=== PATIENT | female | born 1960 | race Caucasian/White ===

== ENCOUNTER → 2023-12-14 08:47 | Outpatient (REF) | payer OTHER, SELFPAY | LOC: PAVMRI 08:47 | PROVIDERS: ATTENDING PHYSICIAN Orthopaedic Surgery | DX: M54.16 Radiculopathy, lumbar region (principal) | CPT/HCPCS: 72148 ==

== ENCOUNTER → 2024-01-08 14:15 | Outpatient (REF) | payer OTHER, SELFPAY | LOC: RAD 14:15 | PROVIDERS: ATTENDING PHYSICIAN Orthopaedic Surgery; FAMILY PHYSICIAN Family Medicine | DX: M79.89 Other specified soft tissue disorders (principal) | CPT/HCPCS: 93971 ==

== ENCOUNTER → 2024-02-27 11:07 | Outpatient (REF) | payer OTHER, SELFPAY | LOC: RAD 11:07 | PROVIDERS: ATTENDING PHYSICIAN Orthopaedic Surgery; FAMILY PHYSICIAN Family Medicine | DX: S84.12XA Injury of peroneal nerve at lower leg level, left leg, initial encounter (principal) | CPT/HCPCS: 76882 ==

== ENCOUNTER → 2024-03-14 14:05 | Outpatient (REF) | payer OTHER, SELFPAY | LOC: RCS 14:05 | PROVIDERS: ATTENDING PHYSICIAN Pain Medicine Interventional Pain Medicine; FAMILY PHYSICIAN Family Medicine | DX: Z01.818 Encounter for other preprocedural examination (principal) | CPT/HCPCS: 93005 ==

== ENCOUNTER → 2024-04-04 08:49 | Outpatient (REF) | payer OTHER, SELFPAY | LOC: HWRAD 08:49 | PROVIDERS: ATTENDING PHYSICIAN Family Medicine | DX: I73.9 Peripheral vascular disease, unspecified (principal) | CPT/HCPCS: 75635; Q9967 ==

== ENCOUNTER → 2024-06-24 12:41 | Outpatient (REF) | payer OTHER, SELFPAY ==
[2024-06-24 13:35] LABS: % Basophils 0.2 % (0-2); % Eosinophils 0.9 % (0-6); % Immature Granulocytes 0.3 % (0-0.5); % Lymphocytes 19.8 % (20.5-51.1); % Monocytes 8.1 % (1.7-9.3); % Neutrophils 70.7 % (42.2-75.2); Absolute Eosinophils 0.1 10^3/uL (0-0.7); Absolute Lymphocytes 1.2 10^3/uL (1.2-3.4); Absolute Monocytes 0.5 10^3/uL (0.1-0.6); Absolute Neutrophils 4.1 10^3/uL (1.4-6.5); Hematocrit 33.9 % (37.0-47.0); Hemoglobin 11.3 g/dL (12.0-16.0); Mean Corp Hgb Conc. 33.3 g/dL (33.0-37.0); Mean Corpuscular Hgb 30.2 pg (27.0-31.0); Mean Corpuscular Volume 90.6 fL (81.0-99.0); Mean Platelet Volume 9.2 fL (7.4-10.4); Nucleated Red Blood Cells % 0 %; Platelet Count 242 10^3/uL (130-400); Red Blood Cell Count 3.74 10^6/uL (4.20-5.40); Red Cell Dist. Width 13.8 % (11.5-14.5); White Blood Cell Count 5.8 10^3/uL (4.8-10.8)
[2024-06-24 14:47] LABS: Blood Urea Nitrogen 17 mg/dl (7-17); Carbon Dioxide 32 mmol/L (22-30); Chloride 97 mmol/L (98-107); Glucose 110 mg/dl (70-99); Potassium 5.2 mmol/L (3.5-5.1); Sodium 142 mmol/L (135-145); eGFR > 60.00
== END ==
LOC: REG 12:41
PROVIDERS: ATTENDING PHYSICIAN Orthopaedic Surgery Hand Surgery; FAMILY PHYSICIAN Family Medicine
DX: Z01.818 Encounter for other preprocedural examination (principal)
CPT/HCPCS: 36415; 80048; 85025

== ENCOUNTER → 2024-06-25 11:55 | Outpatient (REF) | payer OTHER, SELFPAY | LOC: RCS 11:55 | PROVIDERS: ATTENDING PHYSICIAN Orthopaedic Surgery Hand Surgery; FAMILY PHYSICIAN Family Medicine | DX: Z01.818 Encounter for other preprocedural examination (principal) | CPT/HCPCS: 93005 ==

== ENCOUNTER → 2024-11-10 08:36 | Outpatient (REF) | payer OTHER, SELFPAY | LOC: RAD 08:36 | PROVIDERS: ATTENDING PHYSICIAN Surgery Vascular Surgery; FAMILY PHYSICIAN Family Medicine | DX: Z87.891 Personal history of nicotine dependence (principal); I70.229 Atherosclerosis of native arteries of extremities with rest pain, unspecified extremity; I73.9 Peripheral vascular disease, unspecified; Z98.890 Other specified postprocedural states | CPT/HCPCS: 93922 ==

== ENCOUNTER 2024-11-19 06:10 | Day surgery (SDC) | payer OTHER, SELFPAY ==
[2024-11-07 11:18] LABS: Hematocrit 38.4 % (37.0-47.0); Hemoglobin 12.4 g/dL (12.0-16.0); Mean Corp Hgb Conc. 32.3 g/dL (33.0-37.0); Mean Corpuscular Hgb 29.1 pg (27.0-31.0); Mean Corpuscular Volume 90.1 fL (81.0-99.0); Mean Platelet Volume 9.2 fL (7.4-10.4); Platelet Count 209 10^3/uL (130-400); Red Blood Cell Count 4.26 10^6/uL (4.20-5.40); Red Cell Dist. Width 13.5 % (11.5-14.5); White Blood Cell Count 5.6 10^3/uL (4.8-10.8)
[2024-11-07 11:41] LABS: ALT (SGPT) 18 U/L (0-35); AST (SGOT) 23 U/L (14-36); Albumin 4.9 g/dl (3.5-5.0); Alkaline Phosphatase 69 U/L (38-126); Blood Urea Nitrogen 19 mg/dl (7-17); Calcium 10.1 mg/dl (8.4-10.2); Carbon Dioxide 32 mmol/L (22-30); Chloride 98 mmol/L (98-107); Glucose 116 mg/dl (70-99); Potassium 4.7 mmol/L (3.5-5.1); Sodium 140 mmol/L (135-145); Total Bilirubin 0.4 mg/dl (0.2-1.3); Total Protein 7.9 g/dl (6.3-8.2); eGFR > 60.00
[2024-11-07 11:57] LABS: Glycohemoglobin (HgbA1c) 6.2 % (4.0-5.6)
[2024-11-07 13:22] VITALS: BMI 31.0
[2024-11-13 14:42] VITALS: BMI 31.0
[2024-11-19] VITALS (19 sets, daily range): BP systolic 70–141; BP diastolic 48–66; O2SAT 98; BMI 31.0
[2024-11-19] MEDS: TYLENOL 650 MG PO ×4 (07:09→23:02)
--- NOTE | 2024-11-19 07:09 | W.DS.TRANS ---
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
-
Discharge Instructions:
Sleep Apnea Risk High
Discharge Diagnosis/Procedures L JOSE 11/19/24
Diet As tolerated
Activity With Walker
Driving Restrictions No driving
Bathing Restrictions OK to Shower
Other Services PT
Instructions:
Stand-Alone Forms: Total Hip/Knee Replacement D/C
Changes to Home Medications: Yes
Discharge Medications:
DC Medications w/original date entered in [facility]
buprenorphine 8 mg-naloxone 2 mg sublingual tablet 1 tab sublingual BID 06/06/23
cholecalciferol (vitamin D3) 50 mcg (2,000 unit) tablet (Vitamin D3) 50 mcg PO DAILY 06/06/23
fluoxetine 20 mg capsule (Prozac) 20 mg PO DAILY 06/06/23
lisinopril 10 mg tablet 10 mg PO DAILY 06/06/23
aspirin 81 mg capsule 81 mg PO DAILY 11/04/24
clopidogrel 75 mg tablet 75 mg PO DAILY 11/04/24
rosuvastatin 20 mg tablet 20 mg PO DAILY 11/04/24
dexamethasone 4 mg tablet 4 mg PO BID inflammation #6 tabs 11/07/24
gabapentin 300 mg capsule 300 mg PO HS sleep/pain #10 caps 11/07/24
mupirocin 2 % topical ointment 1 applic topical BID infection prevention #1 tube 11/07/24
acetaminophen 325 mg tablet (Tylenol) 650 mg (2 x 325 mg) PO QID #1 tab 11/19/24
aspirin 325 mg tablet 325 mg PO DAILY blood clot prevention #1 tab 11/19/24
cyclobenzaprine 10 mg tablet 10 mg PO HS 11/19/24
docusate sodium 100 mg capsule (Colace) 100 mg PO BID stool softner #1 cap 11/19/24
magnesium hydroxide 400 mg/5 mL oral suspension (Milk of Magnesia) 30 ml PO HS PRN Constipation #1 mL 11/19/24
sennosides 8.6 mg tablet (Senokot) 17.2 mg (2 x 8.6 mg) PO BID laxative #2 tabs 11/19/24
Home Medication Changes
aspirin 81 mg capsule 81 mg PO DAILY 11/04/24
clopidogrel 75 mg tablet 75 mg PO DAILY 11/04/24
rosuvastatin 20 mg tablet 20 mg PO DAILY 11/04/24
dexamethasone 4 mg tablet 4 mg PO BID inflammation #6 tabs 11/07/24
gabapentin 300 mg capsule 300 mg PO HS sleep/pain #10 caps 11/07/24
mupirocin 2 % topical ointment 1 applic topical BID infection prevention #1 tube 11/07/24
acetaminophen 325 mg tablet (Tylenol) 650 mg (2 x 325 mg) PO QID #1 tab 11/19/24
aspirin 325 mg tablet 325 mg PO DAILY blood clot prevention #1 tab 11/19/24
cyclobenzaprine 10 mg tablet 10 mg PO HS 11/19/24
docusate sodium 100 mg capsule (Colace) 100 mg PO BID stool softner #1 cap 11/19/24
magnesium hydroxide 400 mg/5 mL oral suspension (Milk of Magnesia) 30 ml PO HS PRN Constipation #1 mL 11/19/24
sennosides 8.6 mg tablet (Senokot) 17.2 mg (2 x 8.6 mg) PO BID laxative #2 tabs 11/19/24
Pending Results: No
[2024-11-19] MEDS: CELEBREX 200 MG PO (07:10)
[2024-11-19] MEDS: NORMOSOL-R/PLASMALYTE-A 1000 IV ×3 (07:10→15:37)
--- NOTE | 2024-11-19 11:48 | VNURNOTE ---
[facility] liaison rec'ed msg that patient is SDS/PSR. Confirmed w/Mandy Grier that pt will be 23hr OBS and that patient was advised as part of pre-op scheduling to schedule Outpt PT. Confirmed with Ortho [facility] Carter, plan for outpt PT.
--- NOTE | 2024-11-19 12:05 | PTCARENOTE ---
Patient admitted from PACU post left total hip replacement.She is drowsy but arouses easily.The patient reports her pain at a 4 out of 10.Neurovascular assessment is within normal limits and ongoing.The left hip dressing is intact with a scant
amount of drainage.She is able to wiggle her toes and has feeling up to b/l shins.The patient is in her bed with the call bhat in reach.
[2024-11-19] MEDS: ROXICODONE 10 MG PO (12:41)
--- NOTE | 2024-11-19 13:59 | CM ---
Addendum entered by Breanna Torres RN 11/19/24 16:04:
Patient has an appointment set for ambulatory center for Sunday at 1pm. Patient will d/c tomorrow after PT/OT.
Original Note:
Reviewed the chart notes and spoke with the patient and spouse at the bedside. Received TT regarding patient possibly no scheduling outpatient PT. Discuss with patient and spouse. Both reported they were not instructed to do so, nor did they
receive a script for outpatient therapy. Spouse had concern regarding the patient's ability to do outpatient. Resistant to the ideal. Call placed to Priscila with [facility]. [facility] and [facility] booked to mid November. She took CM
information and will look into seeing if able to squeeze patient in on Sunday.
Patient resides with her spouse in a split level home with no steps to enter. The patient reports having a rolling walker, cane, shower chair. The patient has had VN in the past, but no SNF. The patient confirmed her pharmacy of choice is the
[facility]. CM continues to be available to patient/family and is monitoring medical plan for needs at discharge.
Plan: Discharge to home with outpatient therapy.
[2024-11-19] MEDS: CRESTOR 20 MG PO (15:25)
[2024-11-19] MEDS: FLEXERIL 10 MG PO ×3 (15:25→22:55)
[2024-11-19] MEDS: LYRICA 100 MG PO ×2 (15:25→15:36)
[2024-11-19] MEDS: PROZAC PO (15:26)
[2024-11-19] MEDS: ANCEF 5 IV ×2 (15:26→23:03)
[2024-11-19] MEDS: TYLENOL PO (15:36)
[2024-11-19] MEDS: DILAUDID 0.5 MG IV (16:03)
[2024-11-19] MEDS: NSS (PRESERVATIVE FREE) 0.5 ML IV ×2 (17:16→22:55)
[2024-11-19] MEDS: ATIVAN 1 MG IV ×2 (17:16→22:55)
[2024-11-19] MEDS: MS CONTIN (EXTENDED RELEASE) 15 MG PO ×2 (17:16→20:30)
[2024-11-19] MEDS: ASPIRIN 325 MG PO (17:16)
[2024-11-19] MEDS: LYRICA PO (19:30)
[2024-11-19] MEDS: TORADOL 15 MG IV (20:30)
[2024-11-19] MEDS: SENOKOT 17.2 MG PO (20:30)
[2024-11-19] MEDS: DECADRON 6 MG IV (20:30)
[2024-11-19] MEDS: COLACE 100 MG PO (20:30)
[2024-11-19] MEDS: BACTROBAN 2% OINTMENT 1 APPLIC NASAL (20:30)
[2024-11-19] MEDS: LYRICA 150 MG PO (22:55)
[2024-11-19] MEDS: PEPCID 40 MG PO (22:55)
[2024-11-20 03:00] VITALS: BP 124/80
[2024-11-20] MEDS: TYLENOL 650 MG PO ×6 (03:32→23:23)
[2024-11-20 07:32] VITALS: BP 120/58
[2024-11-20] MEDS: ASPIRIN 325 MG PO (08:29)
[2024-11-20] MEDS: PROZAC 20 MG PO (08:29)
[2024-11-20] MEDS: FLEXERIL 10 MG PO ×3 (08:29→21:43)
[2024-11-20] MEDS: LYRICA 150 MG PO (08:29)
[2024-11-20] MEDS: CRESTOR 20 MG PO (08:29)
[2024-11-20] MEDS: MS CONTIN (EXTENDED RELEASE) 15 MG PO (08:30)
[2024-11-20] MEDS: COLACE 100 MG PO ×2 (08:30→20:32)
[2024-11-20] MEDS: MOBIC 15 MG PO (08:30)
[2024-11-20] MEDS: SENOKOT 17.2 MG PO ×2 (08:30→20:32)
[2024-11-20] MEDS: NSS (PRESERVATIVE FREE) 0.5 ML IV (08:31)
[2024-11-20] MEDS: ATIVAN 1 MG IV (08:31)
[2024-11-20] MEDS: TORADOL 15 MG IV ×2 (08:31→20:34)
[2024-11-20] MEDS: DECADRON 6 MG IV ×3 (08:32→20:35)
[2024-11-20] MEDS: BACTROBAN 2% OINTMENT 1 APPLIC NASAL ×2 (08:32→20:32)
--- NOTE | 2024-11-20 10:32 | W.PN.ORTHO ---
Today's Communication / Plan
-
d/c
Assessment
.
Distal Motor Intact: Yes
Dressing:
Clean, dry and intact.
Assessment:
Chronic pain opioid tolerant-issues with pain following surgery now improved with med adjustments--she will f/u with pain provider OP as discussed pre-operatively
Plan
.
Surgery / Date: L JOSE 11/19/24
DVT Prophylaxis: Aspirin
Activity:
Out of bed.
PT/OT
Discharge Plan: Home w/ Outpatient PT
Subjective
.
.:
Patient resting comfortably.
Vital Signs and Labs
.
Vital Signs and Labs:
Lab Results
11/07/24 10:54
11/07/24 10:54
Temp Pulse Resp BP Pulse Ox
97.2 F 70 14 120/58 99
11/20/24 07:32 11/20/24 08:30 11/20/24 07:32 11/20/24 08:30 11/20/24 09:45
Non-invasive Hgb result: 11.4
Physical Exam
-
HEENT: No pallor, cyanosis, or jaundice. Throat clear.
NECK: Supple. No JVD.
RESPIRATORY: Lungs clear to auscultation.
CVS: S1, S2 normal. RRR.� No murmur, rub or gallop.
ABDOMEN: Soft, non-tender. No distension. BS+/normal.
EXTREMITIES: strength equal, no calf pain with palpation
LENDING ACTIVITIES SUPERVISOR: AOx3. No focal deficits. investment accounting clerk grossly intact
[2024-11-20 11:05] VITALS: BP 93/49
[2024-11-20] MEDS: TYLENOL PO (11:56)
--- NOTE | 2024-11-20 12:04 | CM ---
CM following re: discharge planning.
Reviewed pt's chart, met with t.
Pt is a 64 year old female, admitted with OBS status and primary dx of POD #1 L JOSE.
Pt reports she lives with 2SH, 1 step to enter, has supportive daughter. Pt rtepprts she ambulates with a walker and a cane at baseline, has shower chair.
PT and OT evaluations noted: yesterday outpatient PT/OT recommended and today PT/OT recommend home PT/OT. Both pt and her are aware, expressed their agreement. A list of VN vendors provided, pt preferred [facility]. A referral to VN made. Pt is
aware she will start outpatient PT/OT after the completion of home VN services, Home PT and OT.
PCP: Micheal Pereyra
Pharmacy: [facility]
Please fax discharge instructions to VN at [phone]
D/C plan: home with [facility] and family support.
[2024-11-20 12:05] VITALS: BP 144/73
[2024-11-20] MEDS: D5/0.45%NACL 500 IV (12:46)
[2024-11-20 15:17] VITALS: BP 151/58
--- NOTE | 2024-11-20 16:03 | VNURNOTE ---
Chart reviewed and updates rec'ed from BART Slaughter and PT. DC plan initially was outpt PT. PT eval'ed and recommended Home PT. [facility] liaison spoke with patient and spouse at bedside. Patient slightly groggy and making comments that did not make
sense with conversation. Spouse concerned patient not at her baseline. Primary RN aware, PA aware. Provided [facility] brochure and explained services. Patient and spouse are aware that plan is dependant upon re-eval by PT. Referral in [facility] in
case needed.
Plan: Awaiting final DC plan once PT re-evals patient.
Outpt PT v. [facility] home PT
[2024-11-20] MEDS: PEPCID 40 MG PO (21:43)
[2024-11-20 23:09] VITALS: BP 125/56
--- NOTE | 2024-11-21 02:52 | W.PN.UPDATE ---
Addendum entered and electronically signed by EBER Licea 11/21/24 04:19:
0400 official report pending but there appears to be periprosthetic fx left hip
DR isaac notified via TT. ORder placed for NPO, hold ASA, will need repeat OR today.
Original Note:
Update Note
Progress Note Update
0250 Eval for pt fall
Pt ambulated to bathroom unassisted and nurses heard 'thud' and pt found on floor. C/o left hip pain. Left leg doesn't appear shortened and rotated. Pt complains of pain to left hip and left thigh mostly but states not really any worse than post
surgery. LEft hip does appear swollen but RN states does not appear any worse than prior assessment.
Will check stat xray left hip and femur
[2024-11-21 02:57] VITALS: BP 145/65
[2024-11-21] MEDS: TYLENOL 650 MG PO ×5 (03:10→20:15)
--- NOTE | 2024-11-21 03:15 | PTCARENOTE ---
Addendum entered by Constance Nolan RN 11/21/24 07:41:
Pt complained of increase in pain with movement after her fall when assessed at the bedside. FURNITURE ARRANGER also noticed this during her bedside assessment which prompted her to order the STAT Left Hip & Femur xRays.
Original Note:
On 11/19 pt had a total left hip replacement with Dr. Arevalo. This morning pt fell at 02:20 in her room when she was attempting to get out of bed without calling for assistance. I was in room 2101 assisting another pt. Another nurse was in the room
next to my pt, heard the fall and went in to assist. The pt denied hitting her head and both myself and my fellow nurse did a neurological assessment and the pt demonstrated no deficients, her pupils were normal size & she was able to track the
movement of our fingers. There was no blood or lumps on her head. Pt was assisted back to bed & v/s were taken. Temp. 98.6, B/P 145/65, HR 96, POx 96% RA, Resp 20. FURNITURE ARRANGER notified and assessed pt at bedside. FURNITURE ARRANGER ordered a STAT Left Hip & Left Femur Xray.
FURNITURE ARRANGER's updated note at 02:52 states there appears to be periprosthetic fx left hip. FURNITURE ARRANGER notified who ordered the pt NPO, hold ASA for OR. Pt was made NPO and is in her roon. the bed is in a low position, call light in reach, Pt is AOx3, bed
alarm is on and she is watching TV and using her cell phone.
--- NOTE | 2024-11-21 06:56 | W.PN.UPDATE ---
Update Note
Progress Note Update
64-year-old female POD #2 Left Total Hip Replacement 11/19/[address] Arevalo. Unfortunately, she reports sustaining a fall off of the toliet yesterday evening. Radiographs of the left hip show periprosthetic fracture. This will require
revision surgery. Surgical and blood consents obtained and placed in patient's chart. Left hip marked as the correct surgical extremity. Hold Aspirin. NWB LLE. Ancef, iodine irrigation, and TXA irrigation on-call to OR. Type and screen
requested. H&H ordered. Spoke with OR hotel front office manager. Hopefully can proceed with surgery this afternoon pending OR and equipment availability. Orthopedic surgery will continue to follow.
[2024-11-21 07:05] VITALS: BP 124/58
--- NOTE | 2024-11-21 09:02 | W.PN.UPDATE ---
Update Note
Progress Note Update
Notified by therapy yesterday patient impulsive and not following direction. Opioids stopped and additional IVF w/ Decadron ordered. Requested PT re-assess later in day.
[2024-11-21] MEDS: MOBIC 15 MG PO (09:51)
[2024-11-21] MEDS: SENOKOT 17.2 MG PO ×2 (09:51→20:15)
[2024-11-21] MEDS: CRESTOR 20 MG PO (09:52)
[2024-11-21] MEDS: FLEXERIL 10 MG PO ×3 (09:52→21:24)
[2024-11-21] MEDS: PROZAC 20 MG PO (09:52)
[2024-11-21] MEDS: COLACE 100 MG PO ×2 (09:53→20:16)
--- NOTE | 2024-11-21 10:51 | CM ---
Reviewed the chart notes. Patient sustained a fall and left hip x-ray shows periprosthetic fracture that will require revision surgery, hopefully today. CM continues to be available to patient/family and is monitoring medical plan for needs at
discharge.
Plan: Discharge plans will depend on the patient's progress.
[2024-11-21 15:56] VITALS: BP 138/60
--- NOTE | 2024-11-21 16:20 | W.PN.ORTHO ---
Today's Communication / Plan
-
d/c in am-accepted for transfer
Assessment
.
Dressing:
Clean, dry and intact.
Assessment:
This patient was seen pre-op and questioned re Suboxone. Initially denied having pain specialist until I informed her that typically this is who would Rx this drug. Informed by nurse immediately following surgery that she was in 08/07 intractable
pain and crying out. Made med adjustments based on additional info confirmed by nurse. Patient had been taking up to a total of 40mg of Oxycodone daily. Pain was then better controlled following adjustment.
POD#1 Saw patient in am in bed. Appeared somewhat drowsy and not very interactive, which was similar in comparison to pre-op eval. Later informed she became impulsive and not following direction with therapy. Discontinued opioids and ordered
additional IVF and Decadron x1 dose. Asked therapy to reassess later.
POD#2 Report re patient ambulating to bathroom in middle of night without assist and falling with resultant periprosthetic fracture.
Saw patient in am and awakened her. Easily arousable and appeared quite comfortable in bed without complaints. Neuro exam intact. Re Fall--asked patient why she did not request help when ambulating to bathroom in middle of night and she stated' I
did not see anyone around' Time was approximately 2am per nurse. Pointed to call bhat which was next to her on bed and asked why she didn't use call bhat. She then looked down at call bhat and shrugged.
Received text from PAC from [facility] stating patient LM at their office requesting pain meds because she was in pain. I then phoned nurse on floor Edna who stated she was comfortable and not in pain.
.
Plan
.
Surgery / Date: L JOSE 11/19/24
DVT Prophylaxis: Aspirin
Activity:
Out of bed.
PT/OT
Discharge Plan: Other ([facility] transfer for surgical intervention Dr. Guilherme Iverson)
Subjective
.
.:
Patient resting comfortably.
Re Fall--asked patient why she did not request help when ambulating to bed in middle of night and she stated' I did not see anyone around' Time was approximately 2am per nurse. Pointed to call bhat which was next to her on bed and asked why she
didn't use call bhat. She then looked down at call bhat and shrugged.
Vital Signs and Labs
.
Vital Signs and Labs:
Lab Results
11/07/24 10:54
11/07/24 10:54
Temp Pulse Resp BP Pulse Ox
97.9 F 83 20 138/60 95
11/21/24 15:56 11/21/24 15:56 11/21/24 15:56 11/21/24 15:56 11/21/24 15:56
Non-invasive Hgb result: 11.0
Physical Exam
-
HEENT: No pallor, cyanosis, or jaundice. Throat clear.
NECK: Supple. No JVD.
RESPIRATORY: Lungs clear to auscultation.
CVS: S1, S2 normal. RRR.� No murmur, rub or gallop.
ABDOMEN: Soft, non-tender. No distension. BS+/normal.
PATIENT REGISTRATION CLERK: AOx3. No focal deficits. distributed energy systems consultant grossly intact
[2024-11-21] MEDS: PEPCID 20 MG PO (21:25)
[2024-11-21 23:15] VITALS: BP 125/60
[2024-11-22] MEDS: TYLENOL PO ×2 (00:15→05:01)
[2024-11-22 07:39] VITALS: BP 132/72
[2024-11-22 08:18] LABS: Hematocrit 30.7 % (37.0-47.0); Hemoglobin 9.8 g/dL (12.0-16.0)
[2024-11-22] MEDS: PROZAC 20 MG PO (09:06)
[2024-11-22] MEDS: FLEXERIL 10 MG PO ×2 (09:06→16:01)
[2024-11-22] MEDS: CRESTOR 20 MG PO (09:07)
[2024-11-22] MEDS: MOBIC 15 MG PO (09:07)
[2024-11-22] MEDS: SENOKOT PO (09:08)
[2024-11-22] MEDS: COLACE 100 MG PO (09:08)
[2024-11-22] MEDS: TYLENOL 650 MG PO ×3 (09:08→16:01)
--- NOTE | 2024-11-22 10:38 | W.PN.UPDATE ---
Update Note
Progress Note Update
POD #3 s/p left JOSE with Dr. Arevalo.
Unfortunately, Melissa's postop course was complicated by a fall and periprosthetic proximal femur fracture. The current plan is to transfer her to [facility] so that she may proceed with surgical intervention under the direction of Dr. Vanegas
Iverson. Patient seems relatively comfortable on exam this morning and reports her pain has been better controlled. I spoke with her nurse this morning and as of 1 AM, they were still awaiting a bed at [facility]. Continue with bed rest and pain control
as needed until transfer completed.
--- NOTE | 2024-11-22 15:05 | CM ---
Reviewed chart notes. Patient to be transferred to [facility] today. Medical necessity and transport form completed.
[2024-11-22 15:23] VITALS: BP 119/59
[2024-11-22] MEDS: DILAUDID 0.5 MG IV (16:01)
== END 2024-11-22 18:45 | disposition short-term general hospital (02) ==
LOC: SDS 06:10
PROVIDERS: Student in an Organized Health Care Education/Training Program; ATTENDING PHYSICIAN Orthopaedic Surgery; FAMILY PHYSICIAN Family Medicine
DX: M16.12 Unilateral primary osteoarthritis, left hip (principal); S72.145A Nondisplaced intertrochanteric fracture of left femur, initial encounter for closed fracture; W18.39XA Other fall on same level, initial encounter; M97.02XA Periprosthetic fracture around internal prosthetic left hip joint, initial encounter
CPT/HCPCS: 27130; 36415; 73502; 73551; 80053; 83036; 85014; 85018; 85027; 86850; 86900; 86901; 87070; 93005; 97110; 97116; 97162; 97166; 97530; 97535; C1713; C1776